=== PATIENT | male | born 1950 | race Caucasian/White ===

== ENCOUNTER → 2017-12-19 | Outpatient (CLI) | payer BC | END | disposition home or self-care (01) | LOC: PCVCIMAG 09:29 | DX: I48.91 Unspecified atrial fibrillation (principal); R00.2 Palpitations | CPT/HCPCS: 93306 ==

== ENCOUNTER → 2018-02-09 | Outpatient (CLI) | payer BC ==
[~2018-02-09] MED LIST: REGADENOSON 0.4 MG/5 ML DISP.SYRIN. IV
== END | disposition home or self-care (01) ==
LOC: PCVCIMAG 08:16
DX: I48.91 Unspecified atrial fibrillation (principal); R06.09 Other forms of dyspnea; R53.83 Other fatigue; I10 Essential (primary) hypertension; E78.5 Hyperlipidemia, unspecified
CPT/HCPCS: 78452; 93017; A9500; J2785